=== PATIENT | male | born 1950 | race Caucasian/White ===

== ENCOUNTER 2020-09-10 05:28 | Outpatient (RCR) | payer MEDICARE, OTHER ==
[~2020-09-10] VITALS: Ht 172.7 cm; Wt 72.7 kg
[~2020-09-10 05:28] MED LIST: AMLO-251 PO; ASPI-999 PO; ATEN25TA PO; ATOR40TA70 PO; CHOL500044 PO; CLOP75TA69 PO; CYAN-23 PO; HYDR12.56 PO; OMG1KC PO
== END 2020-09-10 09:50 | disposition home or self-care (01) ==
LOC: PREOP 05:28
PROVIDERS: ATTEND Radiology Radiation Oncology
DX: Z01.812 Encounter for preprocedural laboratory examination (principal); C61 Malignant neoplasm of prostate; Z20.822 Contact with and (suspected) exposure to COVID-19
CPT/HCPCS: 87635

== ENCOUNTER 2020-09-12 10:24 | Day surgery (SDC) | payer MEDICARE, OTHER ==
[~2020-09-12] VITALS: Ht 172.7 cm; Wt 72.7 kg
[2020-09-12] VITALS (10 sets, daily range): BP systolic 108–125; BP diastolic 69–95
[2020-09-12] MEDS ORDERED: LEVOFLOXACIN 500 MG/100 ML IV 100 ML IV ONE (10:45)
[2020-09-12] MEDS ORDERED: LACTATED RINGERS 1,000 ML IV PRN (10:45)
--- NOTE | 2020-09-12 11:15 | Progress Note-Pre Operative ---
Pre-Operative Progress Note H&P Reviewed The H&P was reviewed, patient examined and no changes noted. Date Seen by Provider: Sep 12, 2020 Time Seen by Provider: 11:15 Date H&P Reviewed: Sep 12, 2020 Time H&P Reviewed: 11:15 Pre-Operative Diagnosis: Prostate cancer cT1c, PSA 4.23, [place] 7 (3+4) w/ PNI NOVA GIRON MD Sep 12, 2020 11:15
--- NOTE | 2020-09-12 11:19 | Discharge Inst-Simple/Standard ---
Discharge Inst-Standard Reconcile Patient Problems Problems Reviewed?: Yes Discharge Medications New, Converted or Re-Newed RX: Other (Patient has antibiotic at home) Patient Instructions/Follow Up Plan of Care/Instructions/FU: 09/27/[address] simulation at [facility] cancer center arrive at 9:30 a.m. Activity as Tolerated: Yes Discharge Diet: No Restrictions NOVA GIRON MD Sep 12, 2020 11:19
--- NOTE | 2020-09-12 11:40 | NUR ---
enema tap water given x1 per order
[2020-09-12] MEDS ORDERED: MIDAZOLAM 2 MG/2 ML (VERSED) VIAL ONE (12:41)
[2020-09-12] MEDS ORDERED: ONDANSETRON 4 MG/2 ML (SDV) Z0FRAN ONE (12:41)
[2020-09-12] MEDS ORDERED: proPOfol 200 MG/20 ML (DIPRIVAN) VIAL IV ONE (12:41)
[2020-09-12] MEDS ORDERED: SEVOFLURANE (ULTANE) 15 ML INHAL SOLN ONE (12:41)
[2020-09-12] MEDS ORDERED: LIDOCAINE PF 2% 5 ML (XYLOCAINE) VIAL ONE (12:41)
[2020-09-12] MEDS ORDERED: fentaNYL INJECTION 100 MCG/2 ML AMP ONE (12:41)
--- NOTE | 2020-09-12 13:26 | Progress Note-Post Operative ---
Post-Operative Progess Note Surgeon (s)/Baker Apprentice (s) Surgeon Annabelle CARLISLE MD Baker Apprentice: NOVA GIRON MD Pre-Operative Diagnosis Prostate cancer cT1c, PSA 4.23, [place] 7 (3+4) w/ PNI Post-Operative Diagnosis Same as preop Procedure & Operative Findings Date of Procedure 09/12/20 Procedure Performed/Findings (1) Placement of fiducial gold seed markers (2) Injection of biodegradable hydrogel prostate-rectal spacer utilizing the SpaceO[employer] system Anesthesia Type General Estimated Blood Loss Estimated blood loss (mL): None Specimens/Packing Specimens Removed N/A Packing: N/A NOVA GIRON MD Sep 12, 2020 13:26
[2020-09-12] MEDS ORDERED: HYDROmorphone 2 MG/ML VIAL (DILAUDID) IV ONE (13:30)
[2020-09-12] MEDS ORDERED: ONDANSETRON 4 MG/2 ML (SDV) Z0FRAN IVP PRN (13:30)
--- NOTE | 2020-09-12 14:27 | Anesthesia-General Post-Op ---
General Patient Condition Mental Status/LOC: Same as Preop Cardiovascular: Satisfactory Nausea/Vomiting: Absent Respiratory: Satisfactory Pain: Controlled Complications: Absent Post Op Complications Complications None Follow Up Care/Instructions Patient Instructions None needed. Anesthesia/Patient Condition Patient Condition Patient is doing well, no complaints, stable vital signs, no apparent adverse anesthesia problems. No complications reported per nursing. D/C [place] per [facility] [place]: Yes CHRISTIE CHAIDEZ CRNA Sep 12, 2020 14:27
== END 2020-09-12 15:10 | disposition home or self-care (01) ==
LOC: SDC 10:24
PROVIDERS: ATTEND Radiology Radiation Oncology
DX: C61 Malignant neoplasm of prostate (principal); I10 Essential (primary) hypertension; G47.33 Obstructive sleep apnea (adult) (pediatric); M19.90 Unspecified osteoarthritis, unspecified site; E78.5 Hyperlipidemia, unspecified; Z79.899 Other long term (current) drug therapy; Z79.82 Long term (current) use of aspirin; Z86.73 Personal history of transient ischemic attack (TIA), and cerebral infarction without residual deficits; Z80.0 Family history of malignant neoplasm of digestive organs; Z80.42 Family history of malignant neoplasm of prostate; Z80.8 Family history of malignant neoplasm of other organs or systems
CPT/HCPCS: 87081

== ENCOUNTER 2020-09-27 09:26 | Outpatient (RCR) | payer MEDICARE, OTHER | END 2020-10-04 | disposition home or self-care (01) | LOC: ONC 09:26 | PROVIDERS: ATTEND Radiology Radiation Oncology | DX: C61 Malignant neoplasm of prostate (principal); I10 Essential (primary) hypertension; Z87.891 Personal history of nicotine dependence; Z80.42 Family history of malignant neoplasm of prostate; Z80.0 Family history of malignant neoplasm of digestive organs | CPT/HCPCS: 77334; 99204 ==

== ENCOUNTER 2020-12-13 09:42 | Outpatient (RCR) | payer MEDICARE, OTHER | END 2021-01-06 | disposition home or self-care (01) | LOC: ONC 09:42 | PROVIDERS: ATTEND Radiology Radiation Oncology | DX: C61 Malignant neoplasm of prostate (principal); I10 Essential (primary) hypertension; Z87.891 Personal history of nicotine dependence; Z80.42 Family history of malignant neoplasm of prostate; Z80.0 Family history of malignant neoplasm of digestive organs | CPT/HCPCS: 77300; 77301; 77336; 77338; 77385 ==

== ENCOUNTER 2021-01-24 12:52 | Outpatient (RCR) | payer MEDICARE, OTHER | END 2021-04-24 | disposition home or self-care (01) | LOC: ONC 12:52 | PROVIDERS: ATTEND Radiology Radiation Oncology | DX: C61 Malignant neoplasm of prostate (principal); I10 Essential (primary) hypertension; Z87.891 Personal history of nicotine dependence; Z80.42 Family history of malignant neoplasm of prostate; Z80.0 Family history of malignant neoplasm of digestive organs | CPT/HCPCS: 84153; G0463; 99213 ==

== ENCOUNTER 2021-07-18 09:18 | Outpatient (RCR) | payer MEDICARE, OTHER | END 2021-08-30 | disposition home or self-care (01) | LOC: ONC 09:18 | PROVIDERS: ATTEND Radiology Radiation Oncology | DX: C61 Malignant neoplasm of prostate (principal); I10 Essential (primary) hypertension; Z87.891 Personal history of nicotine dependence; Z80.42 Family history of malignant neoplasm of prostate; Z80.0 Family history of malignant neoplasm of digestive organs | CPT/HCPCS: 84153; G0463; 99213 ==

== ENCOUNTER 2022-01-16 08:48 | Outpatient (RCR) | payer MEDICARE, OTHER | END 2022-01-28 | disposition home or self-care (01) | LOC: ONC 08:48 | PROVIDERS: ATTEND Radiology Radiation Oncology | DX: C61 Malignant neoplasm of prostate (principal); I10 Essential (primary) hypertension; Z87.891 Personal history of nicotine dependence | CPT/HCPCS: 84153; G0463; 36415; 99213 ==

== ENCOUNTER 2022-07-04 10:28 | Outpatient (RCR) | payer MEDICARE, OTHER | END 2022-07-30 | disposition home or self-care (01) | LOC: ONC 10:28 | PROVIDERS: ATTEND Radiology Radiation Oncology | DX: C61 Malignant neoplasm of prostate (principal); I10 Essential (primary) hypertension; Z87.891 Personal history of nicotine dependence | CPT/HCPCS: 36415; 84153 ==

== ENCOUNTER 2023-01-06 09:51 | Outpatient (RCR) | payer MEDICARE, OTHER ==
[~2023-01-06 09:51] MED LIST changes: +CLOP-31 PO; -CLOP75TA69 PO
== END 2023-01-28 | disposition home or self-care (01) ==
LOC: ONC 09:51
PROVIDERS: ATTEND Radiology Radiation Oncology
DX: C61 Malignant neoplasm of prostate (principal)
CPT/HCPCS: 36415; 84153

== ENCOUNTER 2023-06-16 09:49 | Outpatient (RCR) | payer MEDICARE, OTHER | END 2023-06-30 | disposition home or self-care (01) | LOC: ONC 09:49 | PROVIDERS: ATTEND Radiology Radiation Oncology | DX: C61 Malignant neoplasm of prostate (principal) | CPT/HCPCS: 36415; 84153 ==